=== PATIENT | female | born 1960 | race Caucasian/White ===

== ENCOUNTER 2019-08-21 05:53 | Day surgery (SDC) | payer OTHER ==
[2019-08-21] MEDS ORDERED: raNITIdine HCL INJ 25 MG/ML VIAL ONE (07:00)
[2019-08-21] MEDS ORDERED: SODIUM CHLORIDE 0.9% 50 ML VIAL ONE (07:00)
[2019-08-21] MEDS ORDERED: DEXAMETHASONE INJ 10 MG/ML VIAL ONE (07:00)
[2019-08-21] MEDS ORDERED: PROPOFOL 200 MG/20 ML VIAL IV ONE (07:00)
[2019-08-21] MEDS ORDERED: KETOROLAC TROMETHAMINE INJ 30 MG/ML VIAL ONE (07:00)
[2019-08-21] MEDS ORDERED: LIDOCAINE 1% 10 ML VIAL INJ ONE (07:00)
[2019-08-21] MEDS ORDERED: PHENYLEPHRINE INJ 1ML 10 MG/ML VIAL ONE (07:00)
[2019-08-21] MEDS ORDERED: LACTATED RINGERS 1,000 ML ONE (07:14)
[2019-08-21] MEDS: LACTATED RINGERS 1,000 ML IVS ONE ×2 (08:35→11:40)
[2019-08-21] MEDS ORDERED: BUPIVACAINE 0.5% W/EPI 30 ML VIAL INJ ONE (08:40)
[2019-08-21] MEDS ORDERED: SUGAMMADEX SODIUM 200 MG/2 ML VIAL IV ONE (10:07)
[2019-08-21] MEDS ORDERED: ROCURONIUM BROMIDE 10 MG/ML VIAL ONE (10:07)
[2019-08-21] MEDS ORDERED: fentaNYL CITRATE INJ 50 MCG/ML AMP ONE (10:07)
[2019-08-21] MEDS ORDERED: KETAMINE HCL 100 MG/ML VIAL ONE (10:07)
[2019-08-21] MEDS ORDERED: MIDAZOLAM INJ 2 MG/2 ML VIAL ONE (10:09)
[2019-08-21] MEDS ORDERED: GLUCAGON INJ 1 MG VIAL ONE (11:01)
[2019-08-21] MEDS ORDERED: ELECTROLYTE-A 1,000 ML IVS ONE (11:03)
--- NOTE | 2019-08-21 11:56 | OP ---
DATE OF PROCEDURE: 08/21/19 PREOPERATIVE DIAGNOSIS: 1. Symptomatic cholelithiasis. POSTOPERATIVE DIAGNOSIS: 1. Cholelithiasis with choledocholithiasis with obstruction. PROCEDURE: 1. Laparoscopic cholecystectomy with intraoperative cholangiogram. 2. Injection of Glucagon. SURGEON: Santino Jernigan MD. ANESTHESIA: General and local. FINDINGS: The gallbladder showed evidence of minimal chronic inflammation. Upon ductotomy, there was some sludge in the distal cystic duct. On cholangiogram, it revealed obstruction of the distal common bile duct with both sludge and small stones. There was no flow into the duodenum after Glucagon and waiting some time, we still were unable to flush the stones through. COMPLICATIONS: None. ESTIMATED BLOOD LOSS: Minimal. SPECIMEN: Gallbladder and stones. CONDITION: Stable. PLAN: Discharge and refer to GI. INDICATION: As stated. PROCEDURE: General anesthesia was induced. The patient was prepped and draped in sterile fashion. Marcaine 0.5% with epinephrine was used at all incision sites. While maintaining upward traction, a herman was made near the base of the umbilicus. Veress needle was introduced. There was free flow of fluid into the peritoneal cavity which was insufflated to an appropriate level with CO2 gas. The 5 mm trocar was placed followed by the camera. There was no evidence of bleeding or bowel injury. The patient was positioned and subxiphoid and lateral ports were placed under direct visualization without difficulty. The gallbladder fundus was easily identified. It was grasped and retracted superiorly and laterally. Some adhesions were taken down from the infundibulum, but they were not excessive. The infundibulum was grasped. The infundibular structures were dissected free. The cystic duct and artery were clearly visualized through the triangle of Calot. A clip was placed on the proximal duct and ductotomy performed. Upon milking the duct, there were very small stones and some sludge in that duct. The cholangiocatheter was then introduced without difficulty. The cholangiogram revealed evidence of distal duct obstruction with multiple small stones. There was no meniscus. We tried to flush this out with multiple attempts with saline without change. Glucagon had been given and we waited quite some time and attempted additional flushing, which was unsuccessful. At this point, we relieved the clamp and mild back the duct to relieve some of that pressure from the fluid. Once we had not return of anymore fluid, three clips were placed on the distal duct. The duct was ligated. The artery triply ligated. The gallbladder was then routinely dissected off the fossa in toto and removed through the subxiphoid incision. Examination of the clips revealed they were intact with no bleeding or bile leak. The area was irrigated and all aspirate was clear. The subxiphoid fascia was then closed with 0 Vicryl using the suture passer. It was airtight and non- bleeding. The remaining trocars were removed. There was no bleeding from the trocar sites. The wounds were irrigated and closed with Monocryl. Dressings were applied. The patient was awakened and taken to Recovery to be discharged. We called [facility] to speak with the doctor educational paraprofessional in regards to need for an ERCP. #[id number] MTDD
[2019-08-21] MEDS ORDERED: ONDANSETRON INJ 4 MG/2 ML VIAL ONE (12:06)
[2019-08-21] MEDS ORDERED: HYDROmorphone HCL INJ 2 MG/ML VIAL ONE (12:06)
[2019-08-21] MEDS ORDERED: ONDANSETRON INJ 4 MG/2 ML VIAL IV ONE (12:09)
[2019-08-21] MEDS ORDERED: HYDROmorphone HCL INJ 2 MG/ML VIAL IV ONE ×3 (12:14→12:37)
[2019-08-21] MEDS ORDERED: PROMETHAZINE HCL INJ 25 MG/ML VIAL IM ONE (12:36)
[2019-08-21] MEDS ORDERED: PROMETHAZINE HCL INJ 25 MG/ML VIAL ONE (12:37)
[2019-08-21 14:15] VITALS: BP 136/87; TEMP 97.1; O2SAT 98
--- NOTE | 2019-08-22 07:28 | RAD ---
EXAM DESCRIPTION: Fluoroscopy Up to 1Hr CLINICAL HISTORY: IOC COMPARISON: None. IMPRESSION: Spot fluoroscopic intraoperative views of the abdomen are obtained during intraoperative cholangiogram. Exam shows opacification of the common bile duct to the level of the distal common bile duct without contrast flowing into the duodenum. Truncation of the distal common bile duct is seen raising suspicion for obstruction of the distal common bile duct possibly secondary to choledocholithiasis. The intrahepatic biliary ductal system is not well visualized. Exam exposure is suboptimal for evaluation. Approximately 53 seconds of intraoperative fluoroscopy time was utilized. No extra exposure images are obtained. Electronically signed by: Jose Mendenhall MD 08/22/2019 7:26 AM DIESEL FLEET [employer]CH[employer]IC
== END 2019-08-21 14:05 | disposition home or self-care (01) ==
LOC: AMB 05:53
PROVIDERS: ATTEND Surgery
DX: K80.10 Calculus of gallbladder with chronic cholecystitis without obstruction (principal); I10 Essential (primary) hypertension; Z88.0 Allergy status to penicillin; Z90.710 Acquired absence of both cervix and uterus; Z87.442 Personal history of urinary calculi; Z79.899 Other long term (current) drug therapy
CPT/HCPCS: 00790; 47563; 76000; A4216; J1100; J1170; J1610; J1885; J2250; J2405; J2550; J2780; J3010; J3490; J7120

== ENCOUNTER 2019-08-26 22:43 | Emergency (ER) | payer SELFPAY ==
[2019-08-26] MEDS ORDERED: SODIUM CHLORIDE 0.9% (FLUSH) 10 ML SYG IV PRN (22:45)
[2019-08-26] MEDS ORDERED: ONDANSETRON INJ 4 MG/2 ML VIAL IV ONE (22:45)
--- NOTE | 2019-08-26 22:45 | ED.PDOC ---
History of Present Illness - General Time Seen by Provider: 08/26/19 22:44 Source: patient, family - History of Present Illness Initial Comments: 58-year-old female arrives with acute onset of upper abdominal pain approximately 2-3 hours ago, worsening in severity, following ERCP earlier today. Not responding to hydrocodone prescribed following recent gallbladder surgery. Pain radiates to her back and shoulder, associated with nausea, but no vomiting or diarrhea. She denies fever. Allergies/Adverse Reactions: Allergies Penicillins Allergy (Intermediate, Verified 08/19/19 13:19) Rash Home Medications: Ambulatory Orders Atorvastatin Calcium [Lipitor] 20 mg PO BEDTIME 08/19/19 Levothyroxine Sodium [Synthroid] 100 mcg PO DAILY 08/19/19 Lisinopril 20 mg PO DAILY 08/19/19 Review of Systems - Review of Systems Review of Systems: 08/26/19 22:52 General: Denies generalized weakness, fever, arthralgia/myalgia HEENT: Denies sore throat, rhinorrhea Cardiovascular: Denies chest pain, palpitations Respiratory: Denies SOB, cough Gastrointestinal: has abdominal pain, as in HPI. no vomiting, diarrhea : Denies dysuria, frequency Musculoskeletal: Denies extremity pain, extremity swelling Integument: Denies rash, itching Neuro: Denies focal weakness or numbness Psych: Denies depression, hallucinations. Past Medical History (General) - Patient Medical History Hx Congestive Heart Failure: No Hx Diabetes: No Hx MRSA: No Family Medical History - Family History Mother Family History: No Known Physical Exam - Physical Exam Comments: General Appearance: Patient is awake and alert. appears uncomfortable. Skin: Warm and dry. No diaphoresis. No rash or other lesions. Head: Normocephalic/atraumatic. Eyes: PERRL, lids, conjunctiva and sclera unremarkable. EOMI intact. ENT: No nasal discharge. Oropharynx. Without erythema, exudate, lesions. Moist mucous membranes. Neck: Supple. No LAD. No tenderness. No JVD noted. Respiratory: Normal rate and effort. Breath sounds clear bilaterally. Cardiovascular: tchycardic rate. Heart sounds normal. No murmur. GI: Abdomen soft, guarding in upper abd. No rebound/guarding. Bowel sounds normal. Back: No tenderness Musculoskeletal: Extremities- Normal range of motion. No effusion, cyanosis, edema. Neurological: Alert. No facial palsy. Speech clear. Gag intact. No motor deficit, str symmetric. No sensory deficit. Progress - Progress Progress: 08/26/19 23:05 Vital Signs - 24 hr 08/26/19 22:45 Temperature 97.0 F L Pulse Rate [ 103 H pulse ox] Respiratory 18 Rate Blood Pressure 142/109 [Right Arm] O2 Sat by Pulse 95 Oximetry 08/27/19 00:33 arrives with history and exam concerning for post ERCP pancreatitis, tachycardic, both normal blood pressure. Pain has responded to analgesics, fluid resuscitation. Significantly more comfortable now. Lipase of 5000 confirms diagnosis. Discussed with gastroenterology, who requests transferred to [facility] in [place], discussed with Dr. Burciaga, accepting hospitalist. Will be direct admit to [facility]. Family and patient understands, and agreeable to plan of care. - Results/Orders Results/Orders: 08/26/19 22:45 IV Care:Saline Lock per Protoc QSHIFT Sodium Chloride 0.9% (Flush) [Saline Flush Syringe] 10 ml IV PRN PRN EKG Assessment ONCE EKG STAT Laboratory Results - last 24 hr 08/26/19 08/26/19 23:10 23:10 WBC 15.9 H RBC 4.96 Hgb 15.8 Hct 47.1 H MCV 94.9 MCH 31.9 H MCHC 33.6 RDW 12.4 Plt Count 297 MPV 9.3 Absolute Neuts (auto) 14.30 H Absolute Lymphs (auto) 0.60 L Absolute Monos (auto) 0.90 H Absolute Eos (auto) 0.00 Absolute Basos (auto) 0.00 Neutrophils % 90.3 H Lymphocytes % 3.9 L Monocytes % 5.7 Eosinophils % 0.0 L Basophils % 0.1 Sodium 138 Potassium 3.9 Chloride 101 Carbon Dioxide 20 L Anion Gap 20.9 H BUN 18 Creatinine 1.04 BUN/Creatinine Ratio 17.3 Random Glucose 260 H Serum Osmolality 286.6 Calcium 9.9 Total Bilirubin 4.7 H* Direct Bilirubin 2.4 H Indirect Bilirubin 2.3 H AST 606 H ALT 607 H Alkaline Phosphatase 303 H Serum Total Protein 7.8 Albumin 4.4 Lipase 4802 H - EKG/XRAY/CT EKG: Tachy - 110, nonspecific ST T wave Chg Comments: nl axis, intervals Departure - Departure Clinical Impression: Post-ERCP acute pancreatitis Time of Disposition: 00:31 Disposition: Transfer to Hospital Condition: Fair Home Medications: Ambulatory Orders Atorvastatin Calcium [Lipitor] 20 mg PO BEDTIME 08/19/19 Levothyroxine Sodium [Synthroid] 100 mcg PO DAILY 08/19/19 Lisinopril 20 mg PO DAILY 08/19/19 Comments: Renato Jolly MD Emergency Medicine #[id number] Transfer to Outside Facility - Transfer Information Decision to Transfer Date: 08/27/19 Decision to Transfer Time: 00:31 Reason for Transfer: required specialist not available Accepting Provider:: Torres Accepting Facility: [facility]
[2019-08-26] MEDS ORDERED: LACTATED RINGERS 1,000 ML IVS ONE (22:46)
[2019-08-26] MEDS ORDERED: HYDROmorphone HCL INJ 2 MG/ML VIAL IV ONE (22:47)
[2019-08-27 00:55] VITALS: BP 126/78; O2SAT 97
[2019-08-27 01:16] VITALS: TEMP 97.3
== END 2019-08-27 01:04 | disposition short-term general hospital (02) ==
LOC: ER 22:43
DX: R07.9 Chest pain, unspecified (principal); K85.90 Acute pancreatitis without necrosis or infection, unspecified; R00.0 Tachycardia, unspecified; Z88.0 Allergy status to penicillin
CPT/HCPCS: 80048; 80076; 83690; 85025; 93005; J1170; J2405; J7120

== ENCOUNTER 2019-10-22 05:42 | Day surgery (SDC) | payer BC ==
[2019-10-22] MEDS ORDERED: SODIUM CHLORIDE 0.9% 1000ML 1,000 ML ONE (06:24)
[2019-10-22] MEDS ORDERED: LACTATED RINGERS 1,000 ML IVS ONE (08:29)
--- NOTE | 2019-10-22 09:27 | OP ---
DATE OF PROCEDURE: 10/22/19 PREOPERATIVE DIAGNOSIS: 1. Bile duct stent removal. POSTOPERATIVE DIAGNOSIS: 1. Unremarkable EGD. 2. Successful bile duct stent removal. PROCEDURE: 1. Esophagogastroduodenoscopy with foreign body removal, bile duct stent removal. SURGEON: Efrain Dougherty MD ANESTHESIA: Monitored anesthesia care. ESTIMATED BLOOD LOSS: Less than 5 mL. COMPLICATIONS: None. PROCEDURE: The patient was placed in the left lateral decubitus position. A time-out was performed. After deep sedation was achieved, the Olympus adult upper endoscope was inserted through the oropharynx and into the proximal esophagus and advanced to the second portion of the duodenum under direct visualization. The endoscope was then progressively withdrawn and the esophagus, stomach and esophageal lumens were evaluated. Foreign body removal was performed, the previously placed bile duct stent was seen in appropriate position. The previously placed bile duct stent was removed initially with biopsy forceps to pull the stent into the stomach and then successfully removed with a wire loop snare from that point. The endoscope was then withdrawn and the procedure terminated. The procedure was then terminated. The patient tolerated the procedure well with no immediate complications. FINDINGS: 1. The esophagus was unremarkable. 2. The stomach was unremarkable. 3. The previously placed bile duct stent was seen as above, successfully removed with a wire loop snare. IMPRESSION: 1. Successful bile duct stent removal. 2. Otherwise unremarkable EGD. RECOMMENDATIONS: 1. Okay to discharge home once the patient meets discharge criteria. 2. Resume prior diet. 3. Resume home medications. 4. Followup in GI clinic with Dr. Dougherty in 3 months. #[id number] MTDD
[2019-10-22 10:00] VITALS: BP 112/82; TEMP 97.2; O2SAT 95
[2019-10-22] MEDS ORDERED: PROPOFOL 200 MG/20 ML VIAL IV ONE (10:00)
[2019-10-22] MEDS ORDERED: LIDOCAINE 1% 10 ML VIAL INJ ONE (10:00)
== END 2019-10-22 09:45 | disposition home or self-care (01) ==
LOC: AMB 05:42
PROVIDERS: ATTEND Neurological Surgery
DX: Z46.59 Encounter for fitting and adjustment of other gastrointestinal appliance and device (principal); E78.00 Pure hypercholesterolemia, unspecified; I10 Essential (primary) hypertension; F17.200 Nicotine dependence, unspecified, uncomplicated; Z90.49 Acquired absence of other specified parts of digestive tract; Z90.710 Acquired absence of both cervix and uterus; Z88.0 Allergy status to penicillin; Z79.899 Other long term (current) drug therapy
CPT/HCPCS: 00731; 43247; J3490; J7030; J7120

== ENCOUNTER → 2020-01-26 | Outpatient (CLI) | payer BC ==
--- NOTE | 2020-01-27 16:28 | MAM ---
EXAM DESCRIPTION: 3D Screening BILATERAL : Digital Mammography. CLINICAL HISTORY: 59 years Female SCREENING . No complaints. No personal or family history of breast cancer. Mother with breast cancer at age 82. Menarche age 12. Childbirth age 19. Postmenopausal unknown HRT more than 5 years ago.. Lifetime risk of developing breast cancer (Tyrer-Cuzick model)(%): 12.1. COMPARISON: Baseline study at this facility.. TECHNIQUE: Bilateral CC and MLO projection full-field images, digital tomosynthesis mammographic technique. Bilateral digital 2-D full-field MLO images. CAD available for 2-D images. FINDINGS: The breast parenchymal density pattern is: Heterogeneously dense breast tissue, which may obscure small masses. No skin thickening or nipple retraction. Bilateral diffuse microcalcifications with scattered groups bilaterally. More left than right. Right axillary lymph nodes. Focal asymmetry middle third of the right breast upper outer quadrant at the 10:30-11:00 position, 9 cm from the nipple. Mostly heterogeneous microcalcifications are in the retroareolar left breast and the upper outer quadrant of the right breast. IMPRESSION: BI-RADS CATEGORY: 0 - INCOMPLETE- Need prior mammograms for comparison. FOLLOW-UP: Comparison with prior examination(s) when available. Written communication explaining the results and follow-up will be mailed to the patient and referring care provider. Electronically signed by: Ke Ochoa MD 01/27/2020 4:26 PM CDT
== END ==
LOC: MAMMO 09:07
PROVIDERS: ATTEND Nurse Practitioner Family
DX: Z12.31 Encounter for screening mammogram for malignant neoplasm of breast (principal)

== ENCOUNTER → 2020-04-05 | Outpatient (CLI) | payer BC ==
--- NOTE | 2020-04-06 12:28 | MAM ---
EXAM DESCRIPTION: 3D Diagnostic, Right (accession [id number]), Breast,Right (accession [id number]): Ultrasound CLINICAL HISTORY: 59 yearsFemaleABNORMAL AND INCONCLUSIVE FINDINGS ON DX IMAGING OF BREAST no personal history of breast cancer. Mother with breast cancer age 82. Menarche age 12. Childbirth age 19. Menopause age unknown. HRT more than 5 years ago. Lifetime risk of developing breast cancer (Tyrer-Cuzick model)(%): 12.1. COMPARISON: Bilateral screening digital breast tomosynthesis January 25. TECHNIQUE: Right breast LM projection full-field images, digital tomosynthesis technique. Right breast 2-D digital full-field images: LM projection. CAD available for 2-D images.. Transcutaneous scanning of the right breast utilizing shipley-scale and Doppler modes. Scanning performed by the sales financial analyst and Dr. Ochoa. FINDINGS: The breast parenchymal density pattern is: Heterogeneously dense breast tissue, which may obscure small masses. No skin thickening or nipple retraction focal asymmetry visualized in the upper outer quadrant as previously. Solitary microcalcifications. No new focal, stellate mass or density, and no suspicious microcalcifications . Ultrasound: Well-defined anechoic oval-shaped object with small anechoic extension 8 cm from the nipple at 10:00. Nonvascular. Wider than tall orientation. Posterior acoustic enhancement. No dominant solid mass or large calcifications. No fluid collection or overlying skin changes. IMPRESSION: Benign exam. BIRAD CATEGORY: 2 BENIGN FINDINGS. RECOMMENDATIONS: FOLLOW UP: Return to routine digital bilateral mammographic screening, one year interval from December 2019. Written communication explaining the IMPRESSION and follow-up, will be mailed to the patient and referring health care provider. The FINDINGS and the FOLLOW-UP plan were reviewed in person with the patient after the examination. According to the [employer], yearly mammograms are recommended starting at age 40 and continuing as long as a woman is in good health. Any breast change noted on a breast self-exam should be reported promptly to the patient's healthcare provider. Breast MRI is recommended for women with an approximately 20-25% or greater lifetime risk of breast cancer, including women with a strong family history of breast or ovarian cancer and women who have been treated for Hodgkin's disease. A negative mammographic report should not delay tissue diagnosis in patients with significant clinical history or physical findings. Extremely dense breast tissue limits the sensitivity of digital mammography. Electronically signed by: Ke Ochoa MD 04/06/2020 12:26 PM CDT
== END ==
LOC: MAMMO 09:18
PROVIDERS: ATTEND Nurse Practitioner Family
DX: R92.8 Other abnormal and inconclusive findings on diagnostic imaging of breast (principal)
CPT/HCPCS: 76641; 77065; G0279